=== PATIENT | male | born 1950 | race Caucasian/White ===

== ENCOUNTER → 2018-07-06 | Outpatient (CLI) | payer OTHER | LOC: FIMAGING 15:05 | PROVIDERS: ATTEND Orthopaedic Surgery | DX: Z47.1 Aftercare following joint replacement surgery (principal); Z96.651 Presence of right artificial knee joint; M25.461 Effusion, right knee; K57.30 Diverticulosis of large intestine without perforation or abscess without bleeding; N40.0 Benign prostatic hyperplasia without lower urinary tract symptoms ==

== ENCOUNTER → 2018-07-07 | Outpatient (CLI) | payer OTHER | LOC: BMCIMAGING 13:57 | PROVIDERS: ATTEND Family Medicine | DX: S22.41XA Multiple fractures of ribs, right side, initial encounter for closed fracture (principal) | CPT/HCPCS: 71101-PO ==

== ENCOUNTER 2018-07-09 17:15 | Emergency (ER) | payer OTHER ==
--- NOTE | 2018-07-09 17:46 | EDPHY ---
H & P Time Seen by Provider: 07/09/18 17:30 HPI/ROS: HPI Head injury. 67-year-old male by private vehicle with his . This patient reports that on Tuesday he tripped on a curb fell forward and struck the right parietal temporal area of his head. No loss of consciousness. He had a headache for most of that day. He reports that he then slipped on some ice fell and broke 2 ribs on the right side of his chest wall on Tuesday. He has been taking hydrocodone 1-2 every 4 hr for pain. He reports that he has not been confused but he has been sleeping a lot and has been difficult to awake according to his . He is concerned about a subdural hematoma. He spoke with a physician friend of his who did not think this was the case but his was concerned and he came to the emergency department to be evaluated. Right now he denies headache. He has not had any nausea or vomiting. No neck pain. No loss of sensation or weakness in his extremities. He is not on anticoagulants. He does take meloxicam for pain. ROS: Constitutional: No fever, no chills. No weakness. Eyes: No discharge. No changes in vision. ENT: No sore throat. No nasal congestion or rhinorrhea. Respiratory: No cough. No shortness of breath. Cardiac: No chest pain, no palpitations. Chest wall pain as above. Gastrointestinal: No abdominal pain, no vomiting, no diarrhea. Genitourinary: No hematuria. No dysuria or increased frequency with urination. Musculoskeletal: No back pain. No neck pain. No myalgias or arthralgias. Skin: No rashes. Neurological: No headache. No focal weakness or altered sensation. Past medical history: Orthopedic surgery, inguinal and umbilical hernia repair. Social history: Drinks alcohol only occasionally. Nonsmoker. Here with his . Physical Exam: General Appearance: Alert, no distress. This patient is responding to questions appropriately and in full sentences. This patient appears well- hydrated and well-nourished. Head: Normocephalic atraumatic. Face: Facial bones are stable on palpation. Eyes: Pupils equal and round and reactive to light at 3-2 mm bilaterally, no photophobia, no pallor or injection. No lid erythema or edema. ENT, Mouth: Mucous membranes moist. Dentition is intact. No malocclusion of the jaw. No tongue lacerations or abrasions. Pharynx is clear. The bilateral nasal canals are clear. No septal hematoma. Respiratory: Mid lateral chest wall tenderness on palpation an area of rib fractures. Neurological: Motor sensory function is intact. Cranial nerves are normal. Cerebellar function intact. Gait is normal. Skin: Warm and dry, no rashes. No lacerations, abrasions or contusions. Musculoskeletal: Neck is supple and nontender. The trachea is midline. No midline cervical, thoracic, lumbar or sacral tenderness on palpation. No flank tenderness on palpation. Extremities are symmetrical, full range of motion. All joints in the bilateral upper and bilateral lower extremities range without pain or impingement. No tenderness on palpation of the long bones in the bilateral upper and bilateral lower extremities. Psychiatric: No agitation. No depression. Database: EKG: Imaging: CT head without contrast: Negative. Results were discussed with staff radiologist Dr. John Alcantara. Procedures: Emergency department course: Triage vital signs reviewed. He is mildly hypertensive. Vital signs are otherwise normal. He consents to CT imaging. 6:10 p.m., patient re-evaluated, resting comfortably at this time. Results of CT scan discussed with him and his . Repeat neurologic Assessment is nonfocal. He feels comfortable going home and I feel he is safe for discharge. Follow-up and return to emergency department precautions reviewed with him. All of his questions were answered. He was discharged from the emergency department in good condition with his . Differential Diagnosis: The differential diagnosis on this patient includes but is not limited to concussion syndrome, medication affects from narcotic pain medication. Traumatic subarachnoid hemorrhage, epidural hematoma, subdural hematoma, spinal injury, other significant traumatic injury unlikely. This represents a partial list of diagnoses considered. These considerations are based on history, physical exam, past history, reassessment and diagnostic testing. Smoking Status: Never smoked Constitutional: Initial Vital Signs Temperature (C) 36.3 C 07/09/18 17:25 Heart Rate 85 07/09/18 17:25 Respiratory Rate 16 07/09/18 17:25 Blood Pressure 143/92 H 07/09/18 17:25 O2 Sat (%) 95 07/09/18 17:25 O2 Delivery Mode Room Air Allergies/Adverse Reactions: Sulfa (Sulfonamide Antibiotics) Allergy (Severe, Verified 07/12/13 14:23) Rash POLLEN Allergy (Uncoded 07/12/13 14:23) Home Medications: Medication Instructions Recorded Ascorbic Acid [Vitamin C 500 mg 1,000 mg PO DAILY 07/12/13 (OTC)] Cholecalciferol Vit D3 [Vitamin D3 1,000 units PO DAILY 07/12/13 1000 units (OTC)] Hydrocodone/APAP 5/325 [[place] 1 tab PO DAILY PRN 07/12/13 5/325 (RX)] Terazosin HCl [Hytrin] 5 mg PO BID 07/12/13 Vitamin B Complex [Vitamin B 1 each PO DAILY 07/12/13 Complex (OTC)] ALPRAZolam [Xanax 0.5 MG (*)] 0.5 mg PO HS PRN 07/03/18 Fluticasone Nasal [Flonase Nasal 1 sprays NASAL DAILY 07/03/18 [place] (RX)] Irbesartan [Avapro 150 mg (*)] 300 mg PO DAILY 07/03/18 Meloxicam 15 mg PO DAILY 07/03/18 Niacin [Niacin 500 mg (*)] 500 mg PO HS 07/03/18 Triamterene/Hydrochlorothiazid 1 each PO DAILY 07/03/18 [Triamterene-Hctz 37.5-25 mg Tb] Departure - Departure Disposition: Home, Routine, Self-Care Clinical Impression: Head injury, Rib fractures Condition: Good Instructions: Head Injury (ED), Rib Fracture (ED) Additional Instructions: Read and follow provided instructions. Follow-up with your primary care physician in 1-2 days for re-evaluation as. Take medication as prescribed for pain control. Return to the emergency department for worsening symptoms, worsening headache, nausea and vomiting, confusion or other serious concerns. Referrals: JULIO LOPEZ [Other] - As per Instructions
[2018-07-09 18:24] VITALS: BP 122/78
== END 2018-07-09 18:24 | disposition home or self-care (01) ==
DX: S09.90XA Unspecified injury of head, initial encounter (principal); S22.41XD Multiple fractures of ribs, right side, subsequent encounter for fracture with routine healing; W01.0XXD Fall on same level from slipping, tripping and stumbling without subsequent striking against object, subsequent encounter; Y92.9 Unspecified place or not applicable; Y93.9 Activity, unspecified

== ENCOUNTER 2018-07-21 07:53 | Observation (INO) | payer OTHER ==
--- NOTE | 2018-07-21 07:21 | PDHPUP ---
History & Physical Update H&P update statement: This history and physical update is based on an assessment of the patient which was completed after admission or registration (within 24 hours), but prior to the surgery/procedure. H&P update: H&P reviewed & patient examined, no change in patient's condition since H&P completed
[~2018-07-21 07:53] MED LIST: ROPIVACAINE 0.2% 80 MG, EPINEPHrine 0.2 MG, KETOROLAC TROMETHAMINE 30 MG in SYRINGE 0 ML IU ONE; TRANEXAMIC ACID 3,000 MG in NS (SYRINGE) 50 ML IRR ONE; TRANEXAMIC ACID 3,000 MG/50 ML BAG IRR ONE
[2018-07-21] MEDS ORDERED: FAMOTIDINE 20 MG TAB PO ONE (08:02)
[2018-07-21] MEDS ORDERED: DEXAMETHASONE 4 MG/ML VIAL IVP ONE (08:02)
[2018-07-21] MEDS ORDERED: ceFAZolin 2 GM/DEXTROSE 100 ML IV ONE (08:02)
[2018-07-21] MEDS ORDERED: ACETAMINOPHEN 325 MG TAB PO ONE (08:02)
[2018-07-21] MEDS ORDERED: LR 1,000 ML IV ONE (08:04)
[2018-07-21] MEDS ORDERED: VANCOMYCIN 1 GM VIAL ONE (09:14)
--- NOTE | 2018-07-21 09:45 | PDANEPAE ---
ANE History of Present Illness Knee OA ANE Past Medical History - Cardiovascular History Hx Hypertension: Yes Hx Arrhythmias: No Hx Chest Pain: No Hx Coronary Artery / Peripheral Vascular Disease: No Hx CHF / Valvular Disease: No Hx Palpitations: No Cardiovascular History Comment: PVC'S. RT BBB - Pulmonary History Hx COPD: No Hx Asthma/Reactive Airway Disease: No Hx Recent Upper Respiratory Infection: No Hx Oxygen in Use at Home: No Hx Sleep Apnea: No Sleep Apnea Screening Result - Last Documented: Positive - Neurologic History Hx Cerebrovascular Accident: No Hx Seizures: No Hx Dementia: No - Endocrine History Hx Diabetes: No - Renal History Hx Renal Disorders: Yes Renal History Comment: BPH - Liver History Hx Hepatic Disorders: No - Neurological & Psychiatric Hx Hx Neurological and Psychiatric Disorders: Yes Neurological / Psychiatric History Comment: HIT CURB WITH TOE FELL SUFFERED CONCUSSION 07/03/18. OCCASIONAL OCCULAR MIGRAINES - Cancer History Hx Cancer: No - Congenital Disorder History Hx Congenital Disorders: No - GI History Hx Gastrointestinal Disorders: No - Other Health History Other Health History: RT RIB FRACTURES 6&7 07/04/18 SLIPPED ON ICE,. HAVING TO SLEEP IN RECLINER - Chronic Pain History Chronic Pain: Yes (RT KNEE AND RT RIBS) - Surgical History Prior Surgeries: LT SHLDR RTC 11/2017. PAULY PATELLOFEMORAL ARTHROPLASTY. 2012. RT ING HERNIA. UMBILICAL HERNIA. LT ACHILLES. RT KNEE SCOPE. LT QUADRACEPS. RT HAND X3 ANE Review of Systems Review of Systems: - Exercise capacity METS (RN): 5 METS ANE Patient History - Allergies Allergies/Adverse Reactions: Sulfa (Sulfonamide Antibiotics) Allergy (Severe, Verified 07/12/13 14:23) Rash POLLEN Allergy (Uncoded 07/12/13 14:23) - Home Medications Home medications: home medication list seen and reviewed Home Medications: Ascorbic Acid [Vitamin C 500 mg (OTC)] 1,000 mg PO DAILY 07/12/13 [Last Taken ] Cholecalciferol Vit D3 [Vitamin D3 1000 units (OTC)] 1,000 units PO DAILY [Last Taken 07/07/18] Hydrocodone/APAP 5/325 [[place] 5/325 (RX)] 1 tab PO DAILY PRN 07/12/13 [Last Taken 07/21/18] Terazosin HCl [Hytrin] 5 mg PO BID 07/12/13 [Last Taken 07/21/18] Vitamin B Complex [Vitamin B Complex (OTC)] 1 each PO DAILY 07/12/13 [Last Taken 07/07/18] ALPRAZolam [Xanax 0.5 MG (*)] 0.5 mg PO HS PRN 07/03/18 [Last Taken 07/11/18] Fluticasone Nasal [Flonase Nasal [place] (RX)] 1 sprays NASAL DAILY 07/03/18 [ Last Taken 07/21/18] Irbesartan [Avapro 150 mg (*)] 300 mg PO DAILY 07/03/18 [Last Taken 07/16/18] Meloxicam 15 mg PO DAILY 07/03/18 [Last Taken 07/07/18] Niacin [Niacin 500 mg (*)] 500 mg PO HS 07/03/18 [Last Taken 07/07/18] Triamterene/Hydrochlorothiazid [Triamterene-Hctz 37.5-25 mg Tb] 1 each PO DAILY 07/03/18 [Last Taken 07/14/18] - NPO status NPO Status: no food or drink >8 hours (Clear liquids) NPO Since - Liquids (Date): 07/21/18 NPO Since - Liquids (Time): 06:45 NPO Since - Solids (Date): 07/20/18 NPO Since - Solids (Time): 23:00 - Anes Hx Anes Hx: no prior problems - Smoking Hx Smoking Status: Never smoked ANE Labs/Vital Signs - Vital Signs Blood Pressure: 128/86 Heart Rate: 79 Respiratory Rate: 16 O2 Sat (%): 92 Height: 190.5 cm Weight: 84.822 kg ANE Physical Exam - Airway Neck exam: FROM Mallampati Score: Class 2 Mouth exam: normal dental/mouth exam - Pulmonary Pulmonary: no respiratory distress - Cardiovascular Cardiovascular: regular rate and rhythym - ASA Status ASA Status: II ANE Anesthesia Plan Anesthesia Plan: spinal Regional Anesthesia: adductor canal FNB
[2018-07-21] MEDS ORDERED: MIDAZOLAM 2 MG/2 ML VIAL ONE (09:47)
[2018-07-21] MEDS ORDERED: MIDAZOLAM 2 MG/2 ML VIAL IVP ONE (09:55)
[2018-07-21] MEDS ORDERED: BUPIVACAINE/DEXTROSE 7.5MG/ML 2 ML SPINAL AMP SP ONE (09:57)
[2018-07-21] MEDS ORDERED: PROPOFOL/EMULSION 500 MG/50 ML BOTTLE IV ONE ×2 (09:58→10:42)
[2018-07-21] MEDS ORDERED: LIDOCAINE 2% 5 ML SDV ONE (09:59)
[2018-07-21] MEDS ORDERED: fentaNYL 100 MCG/2 ML INJ IVP PRN (10:42)
[2018-07-21] MEDS ORDERED: ONDANSETRON 4 MG/2 ML VIAL IVP PRN ×2 (10:42→11:31)
[2018-07-21] MEDS ORDERED: NALOXONE HCL 0.4 MG/ML INJ IVP PRN (10:42)
[2018-07-21] MEDS ORDERED: HYDROmorphONE/DILAUDID 2 MG/ML INJ IVP PRN (10:42)
[2018-07-21] MEDS ORDERED: ROPIVACAINE HCL 150 MG/30 ML INJ ONE (10:46)
[2018-07-21] MEDS ORDERED: POLYETHYLENE GLYCOL 3350 17 GM PKT PO PRN (11:31)
[2018-07-21] MEDS ORDERED: BISACODYL 10 MG SUPP PR PRN (11:31)
[2018-07-21] MEDS ORDERED: TEMAZEPAM 15 MG CAP PO PRN (11:31)
[2018-07-21] MEDS ORDERED: diphenhydrAMINE 25 MG CAP PO PRN (11:31)
[2018-07-21] MEDS ORDERED: METOCLOPRAMIDE 10 MG/2 ML VIAL IVP PRN (11:31)
[2018-07-21] MEDS ORDERED: ONDANSETRON DISINTEGRATING 4 MG TAB PO PRN (11:31)
[2018-07-21] MEDS ORDERED: MAGNESIUM HYDROXIDE 30 ML UDCUP PO PRN (11:31)
[2018-07-21] MEDS ORDERED: LACTULOSE 20 GM/30 ML UDCUP PO PRN (11:31)
[2018-07-21] MEDS ORDERED: CYCLOBENZAPRINE 10 MG TAB PO PRN (11:31)
[2018-07-21] MEDS ORDERED: PROMETHAZINE HCL 25 MG/ML INJ IVP PRN (11:31)
[2018-07-21] MEDS ORDERED: DIPHENOXYLATE/ATROPINE LOMOTIL 1 TAB PO PRN (11:31)
[2018-07-21] MEDS ORDERED: PROMETHAZINE HCL 25 MG SUPPR PR PRN (11:31)
--- NOTE | 2018-07-21 11:31 | POSTOPPROG ---
Post Op Note Date of Operation: 07/21/18 Surgeon: Tim Grant Continuous Still Operator: Kenna Grant PA-C Anesthesia: Spinal, Other (Specify) (adductor canal block) Pre-op Diagnosis: Painful partial knee arthroplasty Post-op Diagnosis: same Indication: progressional of medial compartment arthritis Procedure: Right TKA robotic assisted Findings: Severe medial knee arthritis Inf/Abcess present in the surg proc area at time of surgery?: No EBL: 50-100 Specimen(s): femoral metal component removed
[2018-07-21] MEDS ORDERED: ALPRAZolam 0.5 MG TAB PO PRN (11:34)
--- NOTE | 2018-07-21 11:48 | POSTANESTH ---
Post Anesthetic Evaluation Cardiovascular Status: Similar to Pre-Op Cond Respiratory Status: Similar to Pre-op Cond. Level of Consciousness/Mental Status: Alert and Oriented Pain Control: Adequate, Prn Tx Ordered Nausea/Vomiting Control: Adequate, Prn Tx Ordered Complications Possibly Related to Anesthesia: None Noted
[2018-07-21] MEDS ORDERED: LR 1,000 ML IV SCH (12:00)
[2018-07-21] MEDS: ACETAMINOPHEN 325 MG TAB PO SCH ×3 (13:49→22:21)
[2018-07-21] MEDS: oxyCODONE IR 5 MG TAB PO PRN ×4 (13:49→22:29)
[2018-07-21] MEDS: ceFAZolin 2 GM/DEXTROSE 100 ML IV SCH (17:32)
[2018-07-21] MEDS: TERAZOSIN HCL 5 MG CAP PO SCH (22:21)
[2018-07-21] MEDS: ASPIRIN 81 MG CHEWABLE TAB PO SCH (22:22)
[2018-07-21] MEDS: FAMOTIDINE 20 MG TAB PO SCH (22:22)
[2018-07-21] MEDS: SENNOSIDES/DOCUSATE SODIUM TAB PO SCH (22:22)
[2018-07-22] MEDS: ceFAZolin 2 GM/DEXTROSE 100 ML IV SCH (01:02)
[2018-07-22 04:50] VITALS: BP 123/79
[2018-07-22] MEDS: ACETAMINOPHEN 325 MG TAB PO SCH (04:57)
[2018-07-22] MEDS ORDERED: IRBESARTAN 150 MG TAB PO SCH (09:00)
[2018-07-22] MEDS ORDERED: NON-FORMULARY NEW DRUG (Fluticasone Nasal [Flonase Nasal Spray] 1 SPRAYS) NASAL SCH (09:00)
[2018-07-22] MEDS ORDERED: TRIAMTERENE/HCTZ 37.5/25 1 EACH TAB PO SCH (09:00)
[2018-07-22] MEDS: oxyCODONE IR 5 MG TAB PO PRN (09:24)
[2018-07-22] MEDS: SENNOSIDES/DOCUSATE SODIUM TAB PO SCH (09:24)
[2018-07-22] MEDS: FAMOTIDINE 20 MG TAB PO SCH (09:25)
[2018-07-22] MEDS: TERAZOSIN HCL 5 MG CAP PO SCH (09:25)
[2018-07-22] MEDS: ASPIRIN 81 MG CHEWABLE TAB PO SCH (09:25)
--- NOTE | 2018-07-22 11:13 | GOP ---
DATE OF OPERATION: 07/21/2018 SURGEON: Destiny Grant MD ICE SKATING TEACHER: EVERT Cavazos. ANESTHESIA: Spinal. PREOPERATIVE DIAGNOSIS: Failed patellofemoral arthroplasty. POSTOPERATIVE DIAGNOSIS: Failed patellofemoral arthroplasty. PROCEDURE PERFORMED: Right total knee arthroplasty with computer navigation, robotic assist. FINDINGS: Severe medial compartment osteoarthritis, ACL tear. ESTIMATED BLOOD LOSS: 30 cc. INDICATIONS: The patient is a 67-year-old male with severe and progressive pain and deformity of the right knee unresponsive to conservative care. The risks and benefits of surgical intervention were explained in detail. DESCRIPTION OF PROCEDURE: The patient was brought to the operative room and placed on the table in the supine position. Spinal anesthesia was induced without difficulty. A pneumatic tourniquet was applied about the right proximal thigh, and the leg was prepped and draped in a sterile fashion. The leg rodriguez was applied. After exsanguination by elevation the tourniquet was inflated to 250 mmHg. Incision was made anterior medial from the tibial tuberosity to a point 2 cm proximal to the superior pole of the patella. Medial parapatellar arthrotomy was carried out from the superior pole of the patella and posteriorly in line with the fibers of the Type II VMO. The medial collateral ligament was elevated and the infrapatellar fat pad was resected. The patella component was retained. Attention was turned first to the distal aspect of the femur. After exposure of the femur, 2 half pins were placed for fixation of the femoral array. In a similar fashion, 2 pins were placed anteromedial on the tibia for fixation of the tibial array. External land marking and registration of the hip center were performed without difficulty. Internal femoral and tibial registration were carried out without difficulty and the femoral and tibial checkpoints were placed and verified for accuracy. Attention was turned to the femur. The foot print for the size 7 femoral component was cut with the saw using the [email or web address] robotic system and verified for accuracy against the CT based plan. In a similar fashion, the saw was used to cut the footprint for the size 6 tibial component using the [email or web address] system and verified for accuracy against the CT based plan. The tibial articular surface was excised without difficulty, followed by the intercondylar box cut. The knee was extended and the remnants of the medial and lateral meniscus were excised. The posterior capsule was injected with ropivacaine, epinephrine and Toradol. A size 6 tibial tray was positioned. Trial reduction was then carried out. There was excellent range of motion, alignment, and stability using the 6 x 9 mm polyethylene. All trials were then removed. The joint was thoroughly irrigated and carefully dried. The press-fit components were implanted. The permanent 6 x 9 mm polyethylene was placed without difficulty. The tourniquet was deflated and all bleeders were coagulated. The wound was thoroughly irrigated and closed using interrupted sutures of 2-0 Vicryl for the joint capsule. The subcu was closed with 3-0 Vicryl and the skin with 4-0 Monocryl. Dermabond and Steri-Strips were applied followed by a compressive dressing. The patient was then moved from the operating room to the recovery room in good condition, having tolerated the procedure well. Prior to proceeding with the registration of the femur, the previous trochlear component was removed. The patient already had a patella resurfacing. This was left as is and protected throughout the case. /[id number]/MODL MTDD
== END 2018-07-22 12:49 | disposition home or self-care (01) ==
LOC: F3N 07:53 → PREINTOOBSV 08:18 → F3N 12:57
PROVIDERS: ADMIT Orthopaedic Surgery; ATTEND Orthopaedic Surgery
DX: M17.11 Unilateral primary osteoarthritis, right knee (principal); I10 Essential (primary) hypertension; N40.0 Benign prostatic hyperplasia without lower urinary tract symptoms; Z88.2 Allergy status to sulfonamides
CPT/HCPCS: 27447; 73560; 97110; 97116; 97161; G0378; J0171; J0690; J1100; J1885; J2250; J2704; J2795; J3370